=== PATIENT | male | born 1950 | race Two or more races ===

== ENCOUNTER 2021-06-07 08:11 | Outpatient (CLI) | payer MEDICARE, MEDICAID ==
[2021-06-07 08:51] LABS: CALCIUM, SERUM 8.7 mg/dL (8.5-10.1); CREATININE 1.2 mg/dL (0.6-1.3); POTASSIUM 4.5 mmol/L (3.5-5.1)
[2021-06-07] MEDS ORDERED: IOHEXOL-350 100 ML VIAL IV ONE (09:11)
[2021-06-07] MEDS ORDERED: IV NS 0.9% 250 ML IV ONE (09:11)
== END 2021-06-07 23:59 | disposition home or self-care (01) ==
LOC: CT 08:11
PROVIDERS: ATTEND Internal Medicine Interventional Cardiology
DX: I11.9 Hypertensive heart disease without heart failure (principal); I25.10 Atherosclerotic heart disease of native coronary artery without angina pectoris; J98.11 Atelectasis; J98.4 Other disorders of lung; I71.4 Abdominal aortic aneurysm, without rupture
CPT/HCPCS: 36415; 71275; 76770; 80048; J7050; Q9967